=== PATIENT | male | born 1980 | race Caucasian/White ===

== ENCOUNTER 2018-12-17 14:00 | Emergency (ER) | payer OTHER | END 2018-12-17 17:20 | LOC: E/R 14:00 | DX: S49.91XA Unspecified injury of right shoulder and upper arm, initial encounter (principal); R07.9 Chest pain, unspecified; V49.49XA Driver injured in collision with other motor vehicles in traffic accident, initial encounter | CPT/HCPCS: 71045; 73030-RT; 99284-25 ==